=== PATIENT | female | born 1960 | race Caucasian/White ===

== ENCOUNTER 2024-07-08 14:26 | Emergency (ER) | payer SELFPAY ==
[~2024-07-08] VITALS: Ht 152.4 cm; Wt 65.3 kg
[2024-07-08 15:11] VITALS: BP 118/69; PULSE 85; RESP 24; TEMP 98; O2SAT 96
[2024-07-08 16:05] LABS: BASOPHILS % (AUTO) 0.4 % (0.0-2.0); EOSINOPHILS % (AUTO) 0.3 % (0.0-4.0); HEMATOCRIT 30.6 % (36-48); HEMOGLOBIN 10.2 g/dL (12.0-16.0); LYMPHOCYTES % (AUTO) 24.3 % (20.5-51.1); MEAN CORPUSCULAR HEMOGLOBIN 32 pg (27-31); MEAN CORPUSCULAR HGB CONC 34 g/dL (33-37); MEAN CORPUSCULAR VOLUME 94.6 fL (80-94); MONOCYTES # (AUTO) 0.6 K/uL (0.8-1.0); NEUTROPHILS # (AUTO) 8.6 K/uL (1.8-7.7); PLATELET COUNT (AUTO) 239 K/uL (140-450); RED BLOOD CELL COUNT(AUTO) 3.23 MIL/uL (4.20-5.40); RED CELL DISTRIBUTION WIDTH 14.9 % (11.6-13.7); WHITE BLOOD COUNT (AUTO) 12.3 K/uL (4.8-10.8)
[2024-07-08 16:29] LABS: CALCIUM 9.1 mg/dL (8.5-10.1); CARBON DIOXIDE 28.1 mmol/L (21-32); CREATININE 0.8 mg/dL (0.6-1.3); POTASSIUM 4.1 mmol/L (3.5-5.1)
[2024-07-08 16:52] LABS: ALANINE AMINOTRANSFERASE 226 U/L (12-78); ALKALINE PHOSPHATASE 122 U/L (50-136); ASPARTATE AMINOTRANSFERASE 180 U/L (15-37); BILIRUBIN,DIRECT 0.1 mg/dL (0.0-0.3); THYROID STIMULATING HORMONE 0.76 uIU/mL (0.34-3.74); TOTAL BILIRUBIN 0.2 mg/dL (0.0-1.0); TOTAL PROTEIN, SERUM 6.9 g/dL (6.4-8.2)
[2024-07-08 17:03] LABS: INR 0.93 (0.8-1.2); PARTIAL THROMBOPLASTIN TIME 27.1 secs (22-35.6); PROTHROMBIN TIME 9.8 secs (10.8-13.4)
[2024-07-08] MEDS ORDERED: HEPARIN PER PHARMACY MC PRN (17:10)
[2024-07-08] MEDS ORDERED: hePARIN / DEXT 5% PREMIX 250 ML IV SCH (17:10)
[2024-07-08] MEDS: ASPIRIN 81 MG TAB.CHEW PO ONE (17:43)
[2024-07-08] MEDS: hePARIN / DEXT 5% PREMIX 250 ML IV SCH (18:24)
[2024-07-08 19:25] VITALS: BP 117/70; PULSE 81; RESP 20; TEMP 98; O2SAT 97
== END 2024-07-08 19:25 | disposition short-term general hospital (02) ==
LOC: MED 14:26
DX: I21.4 Non-ST elevation (NSTEMI) myocardial infarction (principal); E78.5 Hyperlipidemia, unspecified; I25.10 Atherosclerotic heart disease of native coronary artery without angina pectoris; Z86.73 Personal history of transient ischemic attack (TIA), and cerebral infarction without residual deficits
CPT/HCPCS: 36415; 71045; 80048; 80076; 83880; 84443; 84484; 85025; 85610; 85730; 93005; 96365; 96375; 99291; J1644; Q0092